=== PATIENT | female | born 1980 | race Caucasian/White ===

== ENCOUNTER 2016-11-03 18:46 | Emergency (ER) | payer OTHER ==
[~2016-11-03] VITALS: Ht 157.5 cm; Wt 85.1 kg
[~2016-11-03 18:46] MED LIST: ANTIBIOTIC; ASPIR-TRIN325 M1 PO; AUGMENTIN875 MG PO; COMBIVENT RESPIM4 GM IH; COMBIVENT RESPIMAT; FISH OIL SOFTG1 EAC2 PO; GABAPENTIN100 MG PO; GABAPENTIN300 MG PO; MORPHINE SULFAT15 M1 PO; MORPHINE SULFAT30 M2 PO; NICOTINE PATCH1 EAC2 TD; NOHOMEMEDS; NORTRIPTYLINE H25 MG PO; ORTHO TRI-CYCL1 EACH PO; OXYCODONE HCL10 MG PO; PAXIL20 MG PO; SYMBICORT60 INHALA1 IH; VENTOLIN HFA18 GM IH; ZOFRAN4 MG PO
[2016-11-03 18:57] VITALS: BP 129/76
== END 2016-11-03 22:11 | disposition home or self-care (01) ==
LOC: EME 18:46 → EXP 18:46
PROC: 0HQFXZZ Repair Right Hand Skin, External Approach (ICD-10-PCS; principal; 2016-11-03)
DX: S61.411A Laceration without foreign body of right hand, initial encounter (principal); W25.XXXA Contact with sharp glass, initial encounter; Y93.G1 Activity, food preparation and clean up; G89.29 Other chronic pain; M79.7 Fibromyalgia; Z79.891 Long term (current) use of opiate analgesic; Z79.82 Long term (current) use of aspirin; F17.200 Nicotine dependence, unspecified, uncomplicated
CPT/HCPCS: 73130; 99281; 99284

== ENCOUNTER 2017-11-27 12:51 | Observation (INO) | payer OTHER ==
[~2017-11-27] VITALS: Ht 157.5 cm; Wt 83.6 kg
[2017-11-27 13:52] LABS: HEMATOCRIT 36.3 % (36.0-46.0); HEMOGLOBIN 12.4 G/DL (11.9-15.5); MCH 32.1 PG (29.0-34.0); MCHC 34.2 G/DL (30.0-36.0); PLATELET COUNT 250 K/uL (156-360); RBC DIS.WIDTH-CV 14.5 % (11.8-14.6); RBC DIS.WIDTH-SD 49.7 % (39-53); RED BLOOD COUNT 3.86 M/uL (3.80-5.20); WHITE BLOOD COUNT 14.1 K/uL (4.1-10.2)
[2017-11-27 14:03] LABS: CHLORIDE 104 mEq/L (99-109); POTASSIUM 3.6 mEq/L (3.7-5.4); SODIUM 136 mEq/L (136-147)
[2017-11-27 14:05] LABS: GLUCOSE 120 mg/dL (70-99)
[2017-11-27 14:09] LABS: CREATININE 0.8 mg/dL (0.6-1.3); GFR ESTIMATE (CALCULATED) > 59 mL/min/
[2017-11-27 14:10] LABS: UREA NITROGEN (BUN) 8 mg/dL (9-23)
[2017-11-27 15:02] LABS: APPEARANCE SL.HAZY ((CLEAR)); BILIRUBIN NEGATIVE; BLOOD NEGATIVE; COLOR AMBER ((YELLOW)); GLUCOSE (STRIP) NEGATIVE; KETONES 5; LEUKOCYTES NEGATIVE; NITRITE NEGATIVE; PROTEIN (STRIP) 30; SPECIFIC GRAVITY 1.026 (1.000-1.030); UROBILINOGEN 0.2 MG/DL (0.2-1.0)
[2017-11-27 15:06] LABS: BACTERIA RARE /HPF; EPITHELIAL CELLS RARE /HPF; MUCUS 2+ /LPF; WHITE BLOOD CELLS 0-5 /HPF (0-5)
[2017-11-27] MEDS ORDERED: SYMBICORT60 INHALAT IH (17:25)
[2017-11-27] MEDS ORDERED: VISINE ADVANCED15 ML BOTH EYES (17:26)
[2017-11-27] MEDS ORDERED: NEURONTIN300 MG PO ×2 (17:26→17:27)
[2017-11-27] MEDS ORDERED: FLONASE16 G1 BOTH NARES (17:26)
[2017-11-27] MEDS ORDERED: ABILIFY2 MG PO (17:27)
[2017-11-27] MEDS ORDERED: XANAX0.5 MG PO (17:27)
[2017-11-27] MEDS ORDERED: DILAUDID8 MG PO (17:28)
[2017-11-27] MEDS ORDERED: TYLENOL ARTHRI650 MG PO (17:28)
[2017-11-27] MEDS ORDERED: VOLTAREN 1% GE100 GM TP (17:28)
[2017-11-27] MEDS ORDERED: B-121000 MC2 PO (17:29)
[2017-11-27] MEDS ORDERED: PAXIL30 MG PO (17:29)
[2017-11-27 19:33] VITALS: BP 125/68
[2017-11-28 00:31] VITALS: BP 117/69
[2017-11-28 07:16] VITALS: BP 123/70
[2017-11-28 12:16] VITALS: BP 118/65
[2017-11-28 16:25] VITALS: BP 118/73
[2017-11-28 17:26] LABS: BENZODIAZEPINES, URINE SCREEN Negative (200 ng/mL)
[2017-11-28 20:00] VITALS: BP 118/80
[2017-11-29 01:00] VITALS: BP 120/76
[2017-11-29 04:30] VITALS: BP 109/57
[2017-11-29 05:15] LABS: BASOPHIL (%) 0.6 % (0-1); BASOPHIL COUNT 0.1 K/uL (0-0.1); EOSINOPHIL (%) 1.2 % (0-5); EOSINOPHIL COUNT 0.1 K/uL (0-0.3); HEMATOCRIT 38.1 % (36.0-46.0); HEMOGLOBIN 12.6 G/DL (11.9-15.5); IMMATURE GRANULOCYTE (%) 0.4 % (0.0-0.7); LYMPHOCYTE (%) 33.9 % (15-42); LYMPHOCYTE COUNT 2.8 K/uL (1.0-2.8); MCHC 33.1 G/DL (30.0-36.0); MCV 93.8 FL (83-99); MONOCYTE (%) 8.4 % (3-12); MONOCYTE COUNT 0.7 K/uL (0-0.8); NEUTROPHIL (%) 55.5 % (45-76); NEUTROPHIL COUNT 4.5 K/uL (1.8-6.4); PLATELET COUNT 314 K/uL (156-360); RBC DIS.WIDTH-CV 14.2 % (11.8-14.6); RBC DIS.WIDTH-SD 49.1 % (39-53); RED BLOOD COUNT 4.06 M/uL (3.80-5.20); WHITE BLOOD COUNT 8.1 K/uL (4.1-10.2)
[2017-11-29 05:34] LABS: CHLORIDE 104 MEQ/L (99-109); CREATININE 0.9 MG/DL (0.6-1.3); GFR ESTIMATE (CALCULATED) > 59 mL/min/; GLUCOSE 102 mg/dL (70-99); MAGNESIUM 2.2 mg/dl (1.3-2.7); SODIUM 138 MEQ/L (136-147)
[2017-11-29 05:38] LABS: POTASSIUM 4.4 MEQ/L (3.7-5.4); UREA NITROGEN (BUN) 22 mg/dL (9-23)
[2017-11-29 07:40] VITALS: BP 109/66
[2017-11-29] MEDS ORDERED: NICOTINE PATCH1 EAC2 TD (11:28)
[2017-11-29] MEDS ORDERED: ASPIRIN EC325 MG PO (11:29)
[2017-11-29] MEDS ORDERED: PAROXETINE HCL20 MG PO (11:29)
[2017-11-29] MEDS ORDERED: QUETIAPINE FUMA50 MG PO (11:30)
[2017-11-29] MEDS ORDERED: QUETIAPINE FUM100 MG PO (11:30)
[2017-11-29 12:20] VITALS: BP 122/68
[2017-11-29 16:18] VITALS: BP 128/80
== END 2017-11-29 16:59 | disposition home or self-care (01) ==
LOC: EME 12:51 → 5WEST 17:43 → EDOF 17:43 → ENRESERV 17:55 → 5WEST 19:22
PROVIDERS: Emergency Medicine; Physician Assistant Medical; Psychiatry & Neurology Psychiatry
DX: J45.901 Unspecified asthma with (acute) exacerbation (principal); R09.02 Hypoxemia; R45.851 Suicidal ideations; F41.8 Other specified anxiety disorders; G89.4 Chronic pain syndrome; F17.210 Nicotine dependence, cigarettes, uncomplicated; J81.1 Chronic pulmonary edema; E53.8 Deficiency of other specified B group vitamins; S20.219A Contusion of unspecified front wall of thorax, initial encounter; Z83.3 Family history of diabetes mellitus; Z82.49 Family history of ischemic heart disease and other diseases of the circulatory system; Z79.82 Long term (current) use of aspirin; Z79.891 Long term (current) use of opiate analgesic; V89.2XXA Person injured in unspecified motor-vehicle accident, traffic, initial encounter
CPT/HCPCS: 70450; 71275; 72125; 72129; 72132; 74177; 80048; 80306 90; 81003; 83735; 85025; 85027; 87040; 87502; 93005; 93306; 94640; 94640 76; 94760; 94799; 99202; G0378; J0456; J0696; J1940; J2930; J7030